=== PATIENT | female | born 1995 | race Caucasian/White ===

== ENCOUNTER 2017-06-28 07:26 | Emergency (ER) | payer BC ==
[~2017-06-28] VITALS: Ht 162.6 cm; Wt 117.9 kg
[2017-06-28 07:30] VITALS: BP 170/86
--- NOTE | 2017-06-28 07:59 | PHYS DOC ---
Past Medical History Past Medical History: No Pertinent History Past Surgical History: No Surgical History Alcohol Use: Occasionally Drug Use: None Adult General Chief Complaint Chief Complaint: LOWEREXTREMITY INJURY HPI HPI Patient is a 22 year old female who presents with pain to her left upper leg. The patient was walking on her treadmill this morning and trying to dismount from the machine when her right leg fell down and left leg was pulled in front of her. She states that she does have persistent pain to the left upper leg with no pain to right. She presented immediately to the emergency department after injury. Review of Systems Review of Systems Constitutional: Denies fever or chills [] Respiratory: Denies cough or shortness of breath [] Cardiovascular: No additional information not addressed in HPI [] Musculoskeletal: See history of present illness Integument: Denies rash or skin lesions [] Neurologic: Denies headache, focal weakness or sensory changes [] Endocrine: Denies polyuria or polydipsia [] All other systems were reviewed and found to be within normal limits, except as documented in this note. Allergies Allergies Allergies Coded Allergies Type Severity Reaction Last Updated Verified No Known Drug Allergies 06/28/17 No Physical Exam Physical Exam Constitutional: Well developed, well nourished, no acute distress, non-toxic appearance. [] Cardiovascular:Heart rate regular rhythm, no murmur [] Lungs & Thorax: Bilateral breath sounds clear to auscultation [] Skin: Warm, dry, no erythema, no rash. [] Back: No tenderness, no CVA tenderness. [] Extremities: tenderness to left hamstring, ROM intact but hip flexion does elicit pain, no edema, pulses and sensation are intact distal to injury. [] Neurologic: Alert and oriented X 3, normal motor function, normal sensory function, no focal deficits noted. [] Psychologic: Affect normal, judgement normal, mood normal. [] Current Patient Data Vital Signs Vital Signs Date Time Temp Pulse Resp B/P (MAP) Pulse Ox O2 Delivery O2 Flow Rate FiO2 06/28/17 07:30 98.0 89 18 170/86 (114) 98 Room Air 98.0 Lab Values Laboratory Tests Test 06/28/17 08:00 POC Urine HCG, Qualitative Hcg negative (Negative) EKG EKG [] Radiology/Procedures Radiology/Procedures []PATIENT: SRAVANTHI QUIÑONEZ ACCOUNT: [id number] : 1995 LOCATION: ER AGE: 22 SEX: F EXAM STATUS: REG ER ORD. PHYSICIAN: RAEGAN CISNEROS APRN REASON: fell on treadmill this morning PROCEDURE: LEFT FEMUR XRAY Indication: Fall. Time of exam 0818 hours. There is a cortical-based lucency noted along the medial aspect of the proximal left femur at the level of the trochanter. This only seen on the AP view. No abnormality is identified on the lateral view. The remainder of the femur is unremarkable. Alignment at the hip and knee is normal. Impression: Cortical-based lucency along the medial aspect of the proximal femur, as described, uncertain if this is a true finding, such as a stress fracture versus overlying soft tissue, as this is only seen on a single image. Clinical correlation to pain in the region of the left hip is recommended. If there is suspicion for stress fracture, MRI of the left hip would be useful for further evaluation. DICTATED and SIGNED BY: KIMBERLY HILLMAN MD DATE: 06/28/17822 CC: RAEGAN CISNEROS APRN; NON,STAFF ~ Course & Med Decision Making Course & Med Decision Making Pertinent Labs and Imaging studies reviewed. (See chart for details) []1. Hamstring strain Upon recheck the patient states that her leg is feeling better. She is to avoid heavy exercise on that extremity for the next 2 weeks. If worsening she needs to follow-up with orthopedics or her primary care provider. She is to RICE the extremity. Crutches were offered and declined. Dragon Disclaimer Dragon Disclaimer This electronic medical record was generated, in whole or in part, using a voice recognition dictation system. RAEGAN CISNEROS APRN Jun 28, 2017 07:58
--- NOTE | 2017-06-28 08:29 | RAD ---
Indication: Fall. Time of exam 0818 hours. There is a cortical-based lucency noted along the medial aspect of the proximal left femur at the level of the trochanter. This only seen on the AP view. No abnormality is identified on the lateral view. The remainder of the femur is unremarkable. Alignment at the hip and knee is normal. Impression: Cortical-based lucency along the medial aspect of the proximal femur, as described, uncertain if this is a true finding, such as a stress fracture versus overlying soft tissue, as this is only seen on a single image. Clinical correlation to pain in the region of the left hip is recommended. If there is suspicion for stress fracture, MRI of the left hip would be useful for further evaluation.
== END 2017-06-28 09:06 | disposition home or self-care (01) ==
LOC: ER 07:26
DX: S76.812A Strain of other specified muscles, fascia and tendons at thigh level, left thigh, initial encounter (principal); W18.39XA Other fall on same level, initial encounter; Y93.A1 Activity, exercise machines primarily for cardiorespiratory conditioning; Y92.89 Other specified places as the place of occurrence of the external cause; Y99.8 Other external cause status
CPT/HCPCS: 73552; 81025; 99284

== ENCOUNTER 2017-08-28 04:49 | Emergency (ER) | payer BC ==
[2017-08-28] MEDS: OSELTAMIVIR 75 MG CAPSULE PO ×2 (05:06)
== END 2017-08-28 05:15 | disposition home or self-care (01) ==
LOC: ER 04:49
DX: O99.511 Diseases of the respiratory system complicating pregnancy, first trimester (principal); J11.1 Influenza due to unidentified influenza virus with other respiratory manifestations; O26.891 Other specified pregnancy related conditions, first trimester; R03.0 Elevated blood-pressure reading, without diagnosis of hypertension; Z3A.09 9 weeks gestation of pregnancy
CPT/HCPCS: 99283

== ENCOUNTER 2017-11-23 02:38 | Emergency (ER) | payer BC | END 2017-11-23 03:12 | disposition left against medical advice (07) | LOC: ER 03:12 | DX: R07.81 Pleurodynia (principal); Z53.21 Procedure and treatment not carried out due to patient leaving prior to being seen by health care provider ==

== ENCOUNTER 2019-12-30 17:50 | Emergency (ER) | payer SELFPAY ==
[~2019-12-30] VITALS: Ht 162.6 cm; Wt 145.0 kg
[~2019-12-30 17:50] MED LIST: OSEL75CA PO
[2019-12-30 18:29] LABS: BASO % 1 % (0-3); EOS # 0.1 x10^3/uL (0.0-0.7); EOS % 1 % (0-3); HEMATOCRIT 40.8 % (36.0-47.0); HEMOGLOBIN 14.1 g/dL (12.0-15.5); LYMPH # 3.3 x10^3/uL (1.0-4.8); LYMPH % 33 % (24-48); MEAN CORPUSCULAR HEMOGLOBIN 31 pg (25-35); MEAN CORPUSCULAR HGB CONC 35 g/dL (31-37); MEAN CORPUSCULAR VOLUME 88 fL (79-100); MONO # 0.8 x10^3/uL (0.0-1.1); MONO % 9 % (0-9); NEUT # 5.6 x10^3/uL (1.8-7.7); NEUT % 57 % (31-73); PLATELET COUNT 312 x10^3/uL (140-400); RED BLOOD COUNT 4.64 x10^6/uL (3.50-5.40); RED CELL DISTRIBUTION WIDTH 12.5 % (11.5-14.5); WHITE BLOOD COUNT 9.8 x10^3/uL (4.0-11.0)
--- NOTE | 2019-12-30 18:31 | PHYS DOC ---
Past Medical History Past Medical History: No Pertinent History Past Surgical History: No Surgical History Smoking Status: Never Smoker Alcohol Use: None Drug Use: None General Adult EDM: Chief Complaint: Palpitations HPI: HPI: Patient is a 24 year old female who presents with complaint of palpitations for the last few days and some intermittent chest tightness. Patient states that it feels like her heart is beating fast at times but right now she denies palpitations. She states that she has a history of anxiety and does not know if this is just part of her anxiety or if there is something going on with her heart. She denies any actual chest pain associated with this, just stating that it is been tightness. She denies any nausea, vomiting or diaphoresis. [] Review of Systems: Review of Systems: Constitutional: Denies fever or chills. [] Respiratory: Denies cough or shortness of breath. [] Cardiovascular: Complains of palpitations. [] GI: Denies abdominal pain, nausea, vomiting or diarrhea. [] Neurologic: Denies headache, focal weakness or sensory changes. [] A full 10 point review of systems has been reviewed and is otherwise negative. Heart Score: HEART Score for Chest Pain: HEART Score for Chest Pain Response (Comments) Value History Slighlty/Non-Suspicious 0 ECG Normal 0 Age < 45 0 Risk Factors No Risk Factors 0 Troponin < Normal Limit 0 Total 0 Risk Factors: Risk Factors: DM, Current or recent (<one month) smoker, HTN, HLP, family history of CAD, obesity. Risk Scores: Score 0 - 3: 2.5% MACE over next 6 weeks - Discharge Home Score 4 - 6: 20.3% MACE over next 6 weeks - Admit for Clinical Observation Score 7 - 10: 72.7% MACE over next 6 weeks - Early Invasive Strategies Allergies: Allergies: Allergies Coded Allergies Type Severity Reaction Last Updated Verified No Known Drug Allergies 06/28/17 No Physical Exam: PE: Constitutional: Well developed, well nourished, no acute distress, non-toxic appearance. [] HENT: Normocephalic, atraumatic, bilateral external ears normal, oropharynx moist, no oral exudates, nose normal. [] Eyes: PERRLA, EOMI, conjunctiva normal, no discharge. [] Neck: Normal range of motion, no tenderness, supple, no stridor. [] Cardiovascular: Regular rate and rhythm [] Lungs & Thorax: Bilateral breath sounds clear to auscultation [] Abdomen: Bowel sounds normal, soft, no tenderness. [] Skin: Warm, dry, no erythema, no rash. [] Extremities: No tenderness, no cyanosis, no clubbing, ROM intact. [] Neurologic: Alert and oriented X 3, no focal deficits noted. [] Current Patient Data: Labs: Laboratory Tests Test 12/30/19 18:17 POC Urine HCG, Qualitative Hcg negative (Negative) EKG: EKG: [] Radiology/Procedures: Radiology/Procedures: [] Course & Med Decision Making: Course & Med Decision Making Pertinent Labs and Imaging studies reviewed. (See chart for details) [] Dragon Disclaimer: Dragon Disclaimer: This electronic medical record was generated, in whole or in part, using a voice recognition dictation system. Departure Departure Impression: Primary Impression: Palpitations Disposition: HOME, SELF-CARE Condition: STABLE Referrals: NO PCP (PCP) Patient Instructions: Palpitations Justicifation of Admission Dx: Justifications for Admission: Justification of Admission Dx: Comment: (Not applicable) MARAH CURRAN Jr. DO Dec 30, 2019 18:31
[2019-12-30 18:32] LABS: BILIRUBIN,URINE NEGATIVE (NEG); CLARITY,URINE CLEAR; COLOR,URINE YELLOW; NITRITE,URINE NEGATIVE (NEG); PROTEIN,URINE NEGATIVE (NEG-TRACE); UROBILINOGEN,URINE 0.2 mg/dL (0.2 mg/dL)
[2019-12-30 18:40] LABS: CALCIUM 9.5 mg/dL (8.5-10.1); CREATININE 0.7 mg/dL (0.6-1.0); GFR 103.7; POTASSIUM 3.9 mmol/L (3.5-5.1)
[2019-12-30 18:40] LABS: BACTERIA,URINE FEW /HPF (0-FEW); SQUAMOUS EPITHELIAL CELL,UR MANY /LPF; WBC,URINE RARE /HPF (0-4)
[2019-12-30 18:46] LABS: ALBUMIN 4.1 g/dL (3.4-5.0); ALBUMIN/GLOBULIN RATIO 1.2 (1.0-1.7); MAGNESIUM 1.9 mg/dL (1.8-2.4); TOTAL BILIRUBIN 0.2 mg/dL (0.2-1.0); TOTAL PROTEIN 7.4 g/dL (6.4-8.2)
--- NOTE | 2019-12-30 18:47 | RAD ---
EXAM: AP View of the chest DATE: 12/30/2019 6:20 PM INDICATION: Palpitations COMPARISON: No Prior FINDINGS: Heart is borderline enlarged. Patchy opacities right greater than left lung base likely atelectasis although developing consolidation may have similar appearance. No pleural effusion or pneumothorax. IMPRESSION: Patchy opacities right greater than left lung base likely atelectasis although developing consolidation would have similar appearance. Electronically signed by: Hieu Ring MD (12/30/2019 6:44 PM) [place]
[2019-12-30 20:44] VITALS: BP 130/74
--- NOTE | 2019-12-31 05:04 | EKG ---
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
== END 2019-12-30 20:08 | disposition home or self-care (01) ==
LOC: ER 17:50
DX: R00.2 Palpitations (principal); R07.89 Other chest pain; F41.9 Anxiety disorder, unspecified
CPT/HCPCS: 36415; 71045; 80053; 81001; 81025; 83735; 83880; 84443; 84484; 85025; 93005; 99285-25